=== PATIENT | male | born 1985 | race Caucasian/White ===

== ENCOUNTER 2018-03-22 14:41 | Inpatient (IN) | payer OTHER ==
--- NOTE | 2018-03-22 15:09 | EDPHY ---
H & P Time Seen by Provider: 03/22/18 15:09 HPI/ROS: CHIEF COMPLAINT: Abnormal lab HISTORY OF PRESENT ILLNESS: Patient was given a diagnosis of IgA nephropathy in the past, after he developed hematuria at 18 years old. He had workup extensive including biopsy. The he had his last bout of illness around February 23 when he says he got food poisoning with nausea vomiting and diarrhea but then saw his primary care physician because he has had sort of a sore throat and increased sleepiness and being very tired for several months. Apparently his creatinine was 3.19 and he was referred to the ED for further evaluation. Patient still is able to urinate, he said he had some hematuria in February and the 1st week in March but nothing since. He said he had some swelling in both legs 2 months ago which has since resolved. REVIEW OF SYSTEMS: Eye: no change in vision ENT: HPI Cardiac: no chest pain or syncope Pulmonary: no cough or SOB Abdomen: No abdominal pain, HPI Musculoskeletal: Intermittent back pain worse in the morning Skin: Staph infection on the right nose being treated with Bactroban Neuro: no headache Constitutional: no fever : HPI A comprehensive 10 point review of systems is otherwise negative aside from elements mentioned in the history of present illness. PAST MEDICAL HISTORY: Includes asthma, kidney disease as above Social history: No tobacco or alcohol General Appearance: Alert and conversant, cooperative. Eyes: No scleral icterus. ENT, Mouth: Normal mucous membranes. Normal pharynx, mucous membranes not dry. Respiratory: Normal respiratory effort, breath sounds equal, lungs are clear to auscultation. Cardiovascular: Regular rate and rhythm. Gastrointestinal: Abdomen is soft and non tender. Neurological: Alert, face symmetric, normal motor and sensory in extremities. Skin: Small sore on his right nostril which is not severely swollen or extending to the rest of his face. Musculoskeletal: No peripheral edema. Psychiatric: Not agitated. Emergency Department course/MDM: IV normal saline, repeat chemistry panel, nephrology consultation, admission. 1542: discussed with Mode; treat hypertension aggressively with IV medications, renal ultrasound with doppler. 1601: Results and plan discussed with the patient, nicardipine discussed and consented and ordered. 1646: 159/97, renal US ordered by hospitalist. Smoking Status: Current some day smoker Constitutional: Initial Vital Signs Temperature (C) 36.7 C 03/22/18 14:43 Heart Rate 61 01/17/19 14:43 Respiratory Rate 18 03/22/18 14:43 Blood Pressure 191/113 H 03/22/18 14:43 O2 Sat (%) 93 03/22/18 14:43 O2 Delivery Mode Room Air Allergies/Adverse Reactions: No Known Allergies Allergy (Unverified 03/22/18 14:48) Home Medications: Medication Instructions Recorded Cetirizine [ZyrTEC 10 mg (*)] 10 mg PO DAILY 03/22/18 Esomeprazole Magnesium [Nexium 20 mg PO DAILY 03/22/18 24Hr] Fluticasone/Salmeter 250/50Mcg 1 puffs IH DAILY 03/22/18 [Advair 250/50 (*)] Medical Decision Making - Diagnostics EKG Interpretation: 12-lead EKG interpreted by me; official reading is in computer system. My interpretation is sinus rhythm rate 80 otherwise normal. Consult/Admit Bed Type: [place] [address] Critical Care Time: Critical care time spent by me, Dr. Parham, exclusively with the care of this patient was 30 minutes, exclusive of PA or POOL LIFEGUARD time and exclusive of separate procedures. The organ system at risk was a renal and I ordered multiple diagnostics, specialist consultation, IV blood pressure medication to stabilize the patient and prevent worsening of the patient's condition. - Data Points Laboratory Results: Laboratory Results 03/22/18 15:07 03/22/18 15:07 03/22/18 03/22/18 15:07 15:07 WBC 8.27 10^3/uL 10^3/uL (3.80-9.50) RBC 4.32 10^6/uL L 10^6/uL (4.40-6.38) Hgb 13.4 g/dL L g/dL (13.7-17.5) Hct 39.4 % L % (40.0-51.0) MCV 91.2 fL fL (81.5-99.8) MCH 31.0 pg pg (27.9-34.1) MCHC 34.0 g/dL g/dL (32.4-36.7) RDW 11.8 % % (11.5-15.2) Plt Count 311 10^3/uL 10^3/uL (150-400) MPV 10.1 fL fL (8.7-11.7) Neut % (Auto) 61.2 % % (39.3-74.2) Lymph % (Auto) 25.2 % % (15.0-45.0) [place] % (Auto) 8.9 % % (4.5-13.0) Eos % (Auto) 3.9 % % (0.6-7.6) Baso % (Auto) 0.6 % % (0.3-1.7) Nucleat RBC Rel Count 0.0 % % (0.0-0.2) Absolute Neuts (auto) 5.06 10^3/uL 10^3/uL (1.70-6.50) Absolute Lymphs (auto) 2.08 10^3/uL 10^3/uL (1.00-3.00) Absolute Monos (auto) 0.74 10^3/uL 10^3/uL (0.30-0.80) Absolute Eos (auto) 0.32 10^3/uL 10^3/uL (0.03-0.40) Absolute Basos (auto) 0.05 10^3/uL 10^3/uL (0.02-0.10) Absolute Nucleated RBC 0.00 10^3/uL 10^3/uL (0-0.01) Immature Gran % 0.2 % % (0.0-1.1) Immature Gran # 0.02 10^3/uL 10^3/uL (0.00-0.10) Sodium 136 mEq/L mEq/L (135-145) Potassium 4.5 mEq/L mEq/L (3.5-5.2) Chloride 108 mEq/L mEq/L (97-110) Carbon Dioxide 24 mEq/l mEq/l (22-31) Anion Gap 4 mEq/L L mEq/L (6-14) BUN 38 mg/dL H mg/dL (7-23) Creatinine 3.0 mg/dL H mg/dL (0.7-1.3) Estimated GFR 25 Glucose 98 mg/dL mg/dL (70-100) Calcium 8.3 mg/dL L mg/dL (8.5-10.4) Medications Given: Discontinued Medications Nicardipine/Sodium Chloride (Cardene 0.1 Mg/Ml (Premix)) 200 mls @ 0 mls/hr IV EDNOW ONE; Titrate PRN Reason: Protocol Stop: 03/22/18 15:58 Last Admin: 03/22/18 16:09 Dose: 200 mls Sodium Chloride (Ns) 1,000 mls @ 0 mls/hr IV EDNOW ONE; Wide Open PRN Reason: Protocol Stop: 03/22/18 17:03 Last Admin: 03/22/18 17:26 Dose: 1,000 mls Departure - Departure Disposition: [facility] Inpatient Acute Clinical Impression: Acute renal failure Qualifiers: Acute renal failure type: unspecified Qualified Code(s): N17.9 - Acute kidney failure, unspecified Hypertension Qualifiers: Hypertension type: unspecified Qualified Code(s): I10 - Essential (primary) hypertension Condition: Fair
[2018-03-22 15:22] LABS: PLATELET COUNT 311 10^3/uL (150-400)
[2018-03-22] MEDS ORDERED: niCARdipine/NACL 200 ML IV ONE (15:57)
[2018-03-22] MEDS ORDERED: ONDANSETRON 4 MG/2 ML VIAL IVP PRN (16:23)
[2018-03-22] MEDS ORDERED: ONDANSETRON DISINTEGRATING 4 MG TAB PO PRN (16:23)
[2018-03-22] MEDS ORDERED: ALBUTEROL 60 PUFFS/8 GM MDI IH PRN (16:28)
[2018-03-22] MEDS ORDERED: NS 1,000 ML IV SCH (16:30)
--- NOTE | 2018-03-22 16:48 | PDGENHP ---
History and Physical - Chief Complaint hematuria - History of Present Illness Patient is a 32-year-old male with known history of IgA nephropathy and asthma who presented to the ER after his primary care physician directed him to come here because his creatinine was elevated. He says he was diagnosed with IgA nephropathy at the age of 18. His initial presenting symptom was hematuria that prompted him to see his primary care doc that then referred him to a mill operator head. His diagnosis was confirmed with a renal biopsy. He has not seen a mill operator head in many years. He says that it is very normal for him to get upper respiratory tract infections after which he develops hematuria which usually clears up after a few days. He got sick with multiple upper respiratory infections and February of 2018 and his hematuria was more persistent lasting almost the entire month of February. He saw his primary care physician today who checked labs and said that his creatinine was almost 3 and sent into the emergency room for further evaluation. He says he has been feeling more tired and lethargic lately and is just getting over an upper respiratory tract infection. Otherwise he denied any shortness of breath nausea vomiting, dyspnea on exertion, fevers chills and cough have swelling in his legs or other symptoms. History Information - Allergies/Home Medication List Allergies/Adverse Reactions: No Known Allergies Allergy (Unverified 03/22/18 14:48) Home Medications: Cetirizine [ZyrTEC 10 mg (*)] 10 mg PO DAILY 03/22/18 [Last Taken 03/21/18] Esomeprazole Magnesium [Nexium 24Hr] 20 mg PO DAILY 03/22/18 [Last Taken ] Fluticasone/Salmeter 250/50Mcg [Advair 250/50 (*)] 1 puffs IH DAILY 03/22/18 [ Last Taken 03/21/18] I have personally reviewed and updated: family history, medical history, social history, surgical history - Past Medical History Additional medical history: IgA nephropathy - Social History Smoking Status: Current some day smoker Review of Systems Review of Systems: ROS: 10pt was reviewed & negative except for what was stated in HPI & below Physical Exam Physical Exam: Temp Pulse Resp BP Pulse Ox 36.7 C 79 16 186/122 H 94 03/22/18 14:43 03/22/18 16:36 03/22/18 16:36 03/22/18 16:36 03/22/18 16:36 Constitutional: no apparent distress, appears nourished, not in pain Eyes: PERRL, anicteric sclera, EOMI Ears, Nose, Mouth, Throat: moist mucous membranes, hearing normal, ears appear normal, no oral mucosal ulcers Cardiovascular: regular rate and rhythym, no murmur, rub, or gallop, No edema Respiratory: no respiratory distress, no rales or rhonchi, clear to auscultation Gastrointestinal: normoactive bowel sounds, soft, non-tender abdomen, no palpable masses Genitourinary: no bladder fullness, no bladder tenderness Skin: warm, normal color, no rashes or abrasions, no fluctuance, no induration, No mottled Musculoskeletal: full muscle strength, no muscle tenderness, normal joint ROM, no joint effusions Psychiatric: interacting appropriately, not anxious, not encephalopathic, thought process linear Lymph, Heme, Immunologic: no cervical LAD, no supraclavicular LAD Lab Data & Imaging Review 03/22/18 15:07 03/22/18 15:07 WBC 8.27 10^3/uL (3.80-9.50) 03/22/18 15:07 RBC 4.32 10^6/uL (4.40-6.38) L 03/22/18 15:07 Hgb 13.4 g/dL (13.7-17.5) L 03/22/18 15:07 Hct 39.4 % (40.0-51.0) L 03/22/18 15:07 MCV 91.2 fL (81.5-99.8) 03/22/18 15:07 MCH 31.0 pg (27.9-34.1) 03/22/18 15:07 MCHC 34.0 g/dL (32.4-36.7) 03/22/18 15:07 RDW 11.8 % (11.5-15.2) 03/22/18 15:07 Plt Count 311 10^3/uL (150-400) 03/22/18 15:07 MPV 10.1 fL (8.7-11.7) 03/22/18 15:07 Neut % (Auto) 61.2 % (39.3-74.2) 03/22/18 15:07 Lymph % (Auto) 25.2 % (15.0-45.0) 03/22/18 15:07 [place] % (Auto) 8.9 % (4.5-13.0) 03/22/18 15:07 Eos % (Auto) 3.9 % (0.6-7.6) 03/22/18 15:07 Baso % (Auto) 0.6 % (0.3-1.7) 03/22/18 15:07 Nucleat RBC Rel Count 0.0 % (0.0-0.2) 03/22/18 15:07 Absolute Neuts (auto) 5.06 10^3/uL (1.70-6.50) 03/22/18 15:07 Absolute Lymphs (auto) 2.08 10^3/uL (1.00-3.00) 03/22/18 15:07 Absolute Monos (auto) 0.74 10^3/uL (0.30-0.80) 03/22/18 15:07 Absolute Eos (auto) 0.32 10^3/uL (0.03-0.40) 03/22/18 15:07 Absolute Basos (auto) 0.05 10^3/uL (0.02-0.10) 03/22/18 15:07 Absolute Nucleated RBC 0.00 10^3/uL (0-0.01) 03/22/18 15:07 Immature Gran % 0.2 % (0.0-1.1) 03/22/18 15:07 Immature Gran # 0.02 10^3/uL (0.00-0.10) 03/22/18 15:07 Sodium 136 mEq/L (135-145) 03/22/18 15:07 Potassium 4.5 mEq/L (3.5-5.2) 03/22/18 15:07 Chloride 108 mEq/L (97-110) 03/22/18 15:07 Carbon Dioxide 24 mEq/l (22-31) 03/22/18 15:07 Anion Gap 4 mEq/L (6-14) L 03/22/18 15:07 BUN 38 mg/dL (7-23) H 03/22/18 15:07 Creatinine 3.0 mg/dL (0.7-1.3) H 03/22/18 15:07 Estimated GFR 25 03/22/18 15:07 Glucose 98 mg/dL (70-100) 03/22/18 15:07 Calcium 8.3 mg/dL (8.5-10.4) L 03/22/18 15:07 Assessment & Plan Assessment: Acute renal failure (Acute)- patient with known history of IgA nephropathy. I discussed the case with the emergency room physician and review reviewed his labs showing elevated creatinine. Nephrology has been consulted. -urine protein and creatinine ordered -renal ultrasound -hydration -nephrology to see Hypertension (Acute)- patient has no known history of hypertension. EKG obtained which shows no ischemic changes. Blood pressure was 193/113 in the emergency room. ER physician and started IV calcium channel yoel drip. -continue nicardipine drip -if able I would titrate this off and give p.r.n. Hydralazine for blood pressure control -Nephrology to see Normocytic anemia- likely anemia of renal disease. Monitor as there is no evidence of active bleed. Prophylaxis- SCDs Fluids- intravenous saline Electrolytes- within normal limits Nutrition- regular diet Cor-full code Dispo- observation for acute kidney injury and hypertensive urgency
[2018-03-22] MEDS ORDERED: NS 1,000 ML IV ONE (17:02)
--- NOTE | 2018-03-22 17:42 | GCON ---
DATE OF CONSULTATION: 03/22/2018 REASON FOR CONSULTATION: Opinion regarding kidney disease. HISTORY OF PRESENT ILLNESS: The patient is a very pleasant 32-year-old gentleman with known IgA neph ropathy diagnosed by kidney biopsy at the age of 18. He has not been on specific therapies. He was diagnosed in [place], [place]. He moved out to the [facility] about 3-1/2 years ago, moved out to the [facility] and up into the [facility] about 6 or 7 months ago. Joseph says that he was feel ing well until about January, he had increasing fatigue with gross hematuria for about 3 weeks, that resolved spontaneously. He was not feeling well around [place] and got some food poisoning. Agai n, he started to have some gross hematuria and it stopped approximately 1 week ago. He now has an ul cer on his right nares and has had that for about 4 days. He has been fatigued and having difficulty sleeping. There is no chest pain or shortness of breath. No cough or sputum production. No hemopt ysis, hematemesis, epistaxis, abdominal pain. He had some diarrhea over . No melena, hemat ochezia, blurry vision, double vision, headache, orthopnea, paroxysmal nocturnal dyspnea, palpitation s, syncope, or diminished urine output. He does have intermittent gross hematuria. PAST MEDICAL HISTORY: Significant for: 1. IgA nephropathy. 2. Asthma. 3. History of appendectomy. ALLERGIES: Environmental in nature. No medical allergies. FAMILY HISTORY: Negative for renal disease. 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 He smokes an occasional cigarette, a bout 1 pack per year and takes marijuana 2-3 times weekly, either by marijuana cigarette or edibles. He drinks about a beer a day, but that is down from 2 beers a day approximately a year ago. MEDICATIONS: He is not prescribed any medications but does take [id number] Nexium and does dio e some occasional Advair for his asthma. Does not use any nonsteroidal anti-inflammatory drugs. PHYSICAL EXAMINATION: VITAL SIGNS: Initial blood pressure in emergency department today were 190/12 5. On a Cardene infusion, his blood pressures are now in the 160/100 range. Pulse of 88, respiration s 16, temperature 36.7. Urine output not yet measured. He weighs 88.5 kg. GENERAL: He is alert, post adoption coordinator perative and is in no acute distress, although he does seem a bit concerned about his situation. JENNIFER NT: Pupils are reactive to light. Extraocular movements are intact. Mucous membranes are moist. Daily magdaleno does have an ulceration on his right nares. NECK: No lymphadenopathy, thyromegaly, JVD or bruit. HEART: Regular. No rub. No S3. He appears to have an S4. No murmur. LUNGS: No rales, rhonchi, or wheezes. ABDOMEN: Bowel sounds are positive. Soft, nontender, nondistended. EXTREMITIES: No cyanos is, clubbing, or edema. NEUROLOGIC: No asterixis. SKIN: No unusual rashes or lesions except for as de scribed above. LYMPH: No palpable lymphadenopathy or lymphedema. MUSCULOSKELETAL: No effusions or te nderness. LABORATORY: Serum sodium 136, potassium 4.5, chloride 108, CO2 24, BUN 38, creatinine 3, glucose 98, calcium 8.3, WBC 8.27, hemoglobin 13.4, hematocrit 39.4, platelet count 311,000. IMPRESSION: 1. Acute kidney injury, patient says his baseline serum creatinine about 3-1/2 years ago when he madyson ed in [place], was about 1. Question if this is an acute kidney injury or is this progressive kidne y failure from his IgA nephropathy. 2. IgA nephropathy by percutaneous kidney biopsy at the age of 18, he has not been on any particular therapy subsequently. 3. Hypertensive urgency, the patient will be admitted to the intensive care unit for close monitorin g. 4. Mild anemia, hemoglobin is 13.4. 5. History of asthma. 6. Environmental allergies. RECOMMENDATIONS: 1. Admit to the intensive care unit for close observation of his blood pressures, he may well need t o be on a Cardene drip for a while. 2. Discussed the progressive nature of IgA nephropathy as well as chronic kidney disease, etc. It i s our hope that with blood pressure control and getting him on appropriate therapy for his IgA nephro jayne, we will see improvement in his renal function. 3. He is mildly anemic. We will work that up. 4. We will be checking a renal ultrasound with Dopplers. 5. We will check an echocardiogram. 6. Check a PT, PTT, hepatitis serologies, etc. 7. There is no urgent dialysis needs at this point. Thank you for allowing me to participate in the care of your patient. If there are any questions, ple ase do not hesitate to contact us. We will be following along with you. /[id number]/MODL
--- NOTE | 2018-03-22 17:52 | CPEKG ---
Test Reason : OPEN Blood Pressure : / mmHG Vent. Rate : 080 BPM Atrial Rate : 083 BPM P-R Int : 154 ms QRS Dur : 094 ms QT Int : 402 ms P-R-T Axes : 039 077 019 degrees QTc Int : 464 ms Sinus rhythm Confirmed by Pasha Parham ([id number]) on 03/22/2018 5:51:42 PM Referred By: Confirmed By:Pasha Parham
[2018-03-22] MEDS ORDERED: niCARdipine/NACL/200 ML BAG IV ONE (18:28)
[2018-03-22 18:37] LABS: INR 0.98 (0.83-1.16); PROTIME(PATIENT) 13.2 SEC (12.0-15.0)
[2018-03-22] MEDS: niCARdipine/NACL 200 ML IV SCH ×3 (18:39→23:28)
[2018-03-22 18:41] LABS: CREATINE KINASE 55 IU/L (0-224)
[2018-03-22] MEDS: ACETAMINOPHEN 325 MG TAB PO PRN (20:10)
[2018-03-22 22:18] LABS: HEPATITIS B SURFACE ANTIGEN NEGATIVE (NEGATIVE)
[2018-03-22 22:27] LABS: HEPATITIS C ANTIBODY TOTAL NEGATIVE (NEGATIVE)
[2018-03-23] MEDS: ACETAMINOPHEN 325 MG TAB PO PRN (01:27)
[2018-03-23 06:37] LABS: PLATELET COUNT 243 10^3/uL (150-400)
[2018-03-23] MEDS ORDERED: FLUTICASONE/SALMETER 250/50MCG DISKUS IH SCH (09:00)
[2018-03-23] MEDS: PANTOPRAZOLE SODIUM 40 MG TAB PO SCH (09:15)
[2018-03-23] MEDS: FLUTICASONE/SALMETER 500/50MCG DISKUS IH SCH (09:34)
--- NOTE | 2018-03-23 09:43 | ECHO ---
[email or web address] [address] [address] Main: [phone] Fax: Transthoracic Echocardiogram Name: JOSEPH VAUGHAN MR#: [id number] Study Date: 03/22/2018 Study Time: 06:37 PM Date of : 1985 Age: 32 year(s) Height: 175.3 cm (69 in.) Weight: 88.45 kg (195 lb.) BSA: 2.04 m2 Gender: Male Examination: Echo Indication: Renal failure, HTN crisis, CHF Image Quality: Contrast: Requested by: Joseph Coello BP: 167 mmHg/87 mmHg Heart Rate: Rhythm: Tachycardia Indication: Renal failure, HTN crisis, CHF Procedure Staff Relay Telegrapher: Miles Haque RDCS Reading Physician: Carlos Nichols MD Requesting Provider: Conclusions: Normal size left ventricle. No LV hypertrophy. Global hypercontractility of the left ventricle. EF is 80 %. No regional wall motion abnormality. Grade 1 diastolic dysfunction (abnormal relaxation). Elevated left ventricular filling pressures.. Normal RV function. The left atrium is normal in size. The right atrium is normal in size. Chiari's network discernible in right atrium. The IVC is normal sized. Measurements: Chambers Valvular Assessment AV/MV Valvular Assessment TV/PV Normal Normal Normal Name Value Range Name Value Range Name Value Range Ao Maria Dolores (MM): 3.3 cm (2.2 cm-3.7 AV Vmax: 1.70 m/s (1 m/s-1.7 PV Vmax: 1.34 m/s (0.6 m/s-0.9 cm) m/s) m/s) IVSd (2D): 0.9 cm (0.6 cm-1.1 AV maxP mmHg ( - ) PV PGmax: 7 mmHg ( - ) cm) LVOT Vmax: 1.53 m/s (0.7 m/s-1.1 LVDd (2D): 5.0 cm (4.2 cm-5.9 m/s) cm) MV E Vmax: 0.99 m/s ( - ) LVDs (2D): 2.6 cm (2.1 cm-4 MV A Vmax: 1.23 m/s ( - ) cm) MV E/A: 0.80 ( - ) LVPWd (2D): 1.0 cm (0.6 cm-1 cm) LVEF (2D): 80 (>=54 %) Continued Measurements: Chambers Valvular Assessment AV/MV Patient: JOSEPH VAUGHAN Study Date: 03/22/2018 Page 1 of 2 06:37 PM Name Value Name Value LADs Lon.8 cm MV E' Septal: 0.07 m/s LA Area: 15.1 cm2 MV E/E' Septal: 14.50 LA Volume: 44 ml MV E/E' Lateral: 14.50 LA Volume Index: 21.6 ml/m2 Findings: Left Ventricle: Normal size left ventricle. No LV hypertrophy. Global hypercontractility of the left ventricle. EF is 80 %. No regional wall motion abnormality. Grade 1 diastolic dysfunction (abnormal relaxation). Elevated left ventricular filling pressures.. Right Ventricle: Normal size right ventricle. Normal RV function. Left Atrium: The left atrium is normal in size. Right Atrium: The right atrium is normal in size. Chiari's network discernible in right atrium. Mitral Valve: The mitral valve is normal in appearance and function. There is no significant mitral valve regurgitation. Aortic Valve: The aortic valve is normal in appearance and function. There is no aortic valve regurgitation. Tricuspid Valve: The tricuspid valve appears normal. There is no tricuspid valve regurgitation. Pulmonic Valve: The pulmonic valve is normal in appearance and function. Aorta: The aorta is normal. IVC: The IVC is normal sized. Pericardium: No pericardial effusion. (No Signature Object) Patient: JOSEPH VAUGHAN Study Date: 03/22/2018 Page 2 of 2 06:37 PM [id number]
--- NOTE | 2018-03-23 11:33 | SOAPPROG ---
SOAP Progress Note Assessment/Plan: Assessment/Plan: SONNY on CKD 1: baseline Cr reportedly 1.0 from a few years back, no recent baseline, has h/o IgA nephropathy. Cr up to 3.0 on presentation, now down to 2.6. - No need for HD. - Will continue to monitor. - Will plan on outpatient nephrology clinic f/u. - Ideally want to start on RAAS blockade, but will hold off for now. HTN: better today, off nicardipine ggt and BP ok this am. - D/C nicardipine ggt. - Would hold off on RAAS blockade until SONNY has improved further. - Will order prn hydralazine for now. - Will order nifedipine to be given tonight only if SBP >145. Subjective: No acute events overnight. Pt states he had some nausea early this am but none now, feeling fine. He has been off nicardipine ggt since last night, SBP 120s- 140s this am. Objective: Vital Signs Temp Pulse Resp BP Pulse Ox 36.8 C 58 L 9 L 120/100 H 94 03/23/18 08:00 03/23/18 08:00 03/23/18 08:00 03/23/18 08:00 03/23/18 08:00 Laboratory Results 03/23/18 05:40 03/23/18 05:40 03/22/18 03/23/18 03/24/18 05:59 05:59 05:59 Intake Total 3391 Output Total 2500 Balance 891 PT 13.2 SEC (12.0-15.0) 03/22/18 15:07 INR 0.98 (0.83-1.16) 03/22/18 15:07 General: alert and oriented, no acute distress Eyes: EOMI, PERRL OP: Clear CV: RRR REsp: Nonlabored respirations on RA Abd: soft, NT/ND Ext: no edema BLE Neuro: CN II-XII grossly intact Psych: cooperative ICD10 Worksheet Patient Problems: Problems Problem Status Onset Acute renal failure Acute Hypertension Acute
[2018-03-23] MEDS ORDERED: NIFEdipine ER 30 MG TAB PO SCH (11:45)
--- NOTE | 2018-03-23 12:42 | HOSPPROG ---
Hospitalist Progress Note Assessment/Plan: 32yo M with IgA nephropathy presents with fatigue found to have severely elevated BP and elevated creatinine. 1. SONNY: Unknown baseline recently, query component of CKD. Improving. - Nephrology following - Renal US without hydro - Avoid nephrotoxins 2. IgA nephropathy: Diagnosed at age 18 - Would benefit from ACEi, holding until Cr improves 3. Severe hypertension: Manifestation of above. BP much better, off cardene gtt. - Hydral PRN until can institute ACEi 4. Diastolic dysfunction: Euvolemic. Noted on echo. 5. Anemia: Mild. Fe replete. Suspect d/t renal disease. 6. Secondary hyperparathyroidism: Phos binders per renal. 7. Nasal ulcer: Bacitracin ointment. Less likely vasculitic in nature. VTE ppx: SCDs Code: full Diet: regular Dispo: Switch to inpatient, transfer to floor Subjective: No complaints. Resting comfortably in bed Objective: Vital Signs Temp Pulse Resp BP Pulse Ox 36.8 C 58 L 9 L 120/100 H 94 03/23/18 08:00 03/23/18 08:00 03/23/18 08:00 03/23/18 08:00 03/23/18 08:00 Laboratory Results 03/23/18 05:40 03/23/18 05:40 03/22/18 03/23/18 03/24/18 05:59 05:59 05:59 Intake Total 3391 Output Total 2500 Balance 891 PT 13.2 SEC (12.0-15.0) 03/22/18 15:07 INR 0.98 (0.83-1.16) 03/22/18 15:07 - Physical Exam Constitutional: no apparent distress, appears nourished, not in pain Eyes: PERRL, anicteric sclera, EOMI Ears, Nose, Mouth, Throat: moist mucous membranes, hearing normal, ears appear normal, no oral mucosal ulcers Cardiovascular: regular rate and rhythym, no murmur, rub, or gallop, No edema Respiratory: no respiratory distress, no rales or rhonchi, clear to auscultation Gastrointestinal: normoactive bowel sounds, soft, non-tender abdomen, no palpable masses Genitourinary: no bladder fullness, no bladder tenderness, no renal bruits Skin: no rashes or abrasions, no fluctuance, no induration Musculoskeletal: full muscle strength, no muscle tenderness, normal joint ROM Neurologic: AAOx3, sensation intact bilaterally Psychiatric: interacting appropriately, not anxious, not encephalopathic, thought process linear ICD10 Worksheet Patient Problems: Problems Problem Status Onset Acute renal failure Acute Hypertension Acute
--- NOTE | 2018-03-23 13:05 | ASMTCASEMG ---
Living Arrangements What is your living Answers: Alone arrangement? Who do you live with? Type Of Residence What kind of residence do Answers: House you live in? Discharge Plan Comments Coordination Status Comments Notes: Patient is a 32yo single male with a known hx of IgA nephropathy, who has been admitted for acute renal failure, hypertension and normocytic anemia. No therapies have been ordered. D/C plan TBD. CM will follow. Date Signed: 03/23/2018 01:04 PM Electronically Signed By:Aliya Crabtree LCSW
--- NOTE | 2018-03-23 15:24 | PDMN ---
Medical Necessity Medical necessity: Change to inpt as of 03/23/18 @ 12:57 per MD order and [facility] [place] M- 326, Renal Failure, Acute. 32 y/o w/IgA nephropathy presented w/fatigue and severely elevated BP, and elevated creatinine 3.0, admitted w/SONNY, IgA nephropathy, nephrology following, diastolic dysfunction, euvolemic, anemia, sec hyperparathyroidism. Upgraded to inpt for further monitoring/management of above.
[2018-03-23] MEDS: NIFEdipine ER 30 MG TAB PO SCH (17:05)
--- NOTE | 2018-03-23 18:19 | GCON ---
CRITICAL CARE CONSULT. DATE OF CONSULTATION: 03/23/2018 HISTORY OF PRESENT ILLNESS: This patient is a 32-year-old male with known history of IgA nephropathy , who has not seen a doctor in several years. He says he gets a few upper respiratory tract infectio ns about once a year, which are associated with hematuria as he has had in the past. They usually re solve on their own. He has been living in [place] for the last 3 years. This occurred in February 2018 as well, but his hematuria did not seem to resolve and he had ongoing fatigue, went to his prima care physician who measured labs and found his creatinine be up to 3. In addition, on arrival in the emergency department, he had a blood pressure of 193/113, was started on a Cardene drip, moved to the ICU. He developed some flushing and discomfort with the nicardipine drip. This was stopped at about 4 a.m. and his blood pressure remained relatively stable since that time. He has had a good ur ine output as well. REVIEW OF SYSTEMS: Otherwise negative. He says he feels reasonably well today and the other symptom s have otherwise resolved. PAST MEDICAL HISTORY: 1. IgA nephropathy. 2. Asthma. 3. GERD. PAST SURGICAL HISTORY: None. SOCIAL HISTORY: He is a nonsmoker. FAMILY HISTORY: Noncontributory at this time. MEDICATIONS: Include Tylenol, albuterol, hydralazine p.r.n., Zofran, Protonix, Advair. PHYSICAL EXAM: VITAL SIGNS: At the time of my evaluations, blood pressure was 120/100, heart rate 5 8, respiratory rate 9, oxygen saturation 94% on room air. GENERAL: He is very pleasant man in no donnie arent distress. Able to speak in full sentences without using accessory muscles for breathing. HEEN T: Pupils equally round and reactive to light. Nonicteric and noninjected. Mucous membranes moist w ithout erythema or exudate. NECK: Supple without adenopathy or jugular vein distention. LUNGS: Casie ath sounds were clear to auscultation bilaterally without wheezes, rubs or rales. HEART: Regular ra te and rhythm without murmurs, rubs, or gallops. ABDOMEN: Soft, nontender, nondistended without hep atosplenomegaly. EXTREMITIES: No clubbing, cyanosis, or edema. 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 SKIN: Warm, dry, without evidence of rash. OBJECTIVE DATA: Includes white count 10.4, hematocrit 34.8, platelets of 243. Sodium is 136, potass ium 4.7, chloride 109, bicarb 34, BUN 32, creatinine 2.6 which is down from 3.0 yesterday. Uric acid was 8.9, calcium 7.9, phos 5.3. LFTs were normal. Total protein 5.3, albumin 2.5, TSH 3.6. Urinal ysis showed 2+ protein, 50-180 red cells. Urine creatinine 26, urine protein 276, and hepatitis A, B and C all negative. ASSESSMENT AND PLAN: 1. Hypertensive urgency, probably related to his underlying renal disease. He responded from a bloo d pressure perspective to his nicardipine, but did not tolerate the drug very well. He probably will end up with an INGRID inhibitor at some point. I will defer that to Renal who preferred to give him ni fedipine at this time. He is off the drip. Will probably go to the floor. 2. Acute kidney injury, probably related to his IgA nephropathy. No dialysis is indicated. He did respond well to the IV fluids and making excellent urine at this time. /[id number]/MODL
[2018-03-23] MEDS: hydrALAZINE 20 MG/ML VIAL IVP PRN (21:46)
[2018-03-23] MEDS: MUPIROCIN 2% 22 GM OINT TP SCH (21:47)
[2018-03-24] MEDS: PANTOPRAZOLE SODIUM 40 MG TAB PO SCH (09:01)
[2018-03-24] MEDS: NIFEdipine ER 30 MG TAB PO SCH (09:01)
[2018-03-24] MEDS: MUPIROCIN 2% 22 GM OINT TP SCH (09:02)
[2018-03-24] MEDS: FLUTICASONE/SALMETER 500/50MCG DISKUS IH SCH (09:45)
[2018-03-24] MEDS: hydrALAZINE 20 MG/ML VIAL IVP PRN (09:48)
[2018-03-24 12:17] VITALS: BP 171/96
--- NOTE | 2018-03-24 13:37 | PDDCSUM ---
Discharge Summary Discharge Summary: Date of Admission: 03/22/2018 Date of Discharge: 03/24/2018 Consultants: nephrology, ammonia technician Studies: TTE, renal US Discharge Diagnoses: 1. SONNY 2. Hypertensive urgency 3. IgA nephropathy 4. Diastolic dysfunction 5. Anemia of renal disease 6. Secondary hyperparathyroidism 7. Nasal erythema Brief Hospital Course: 32yo M with IgA nephropathy presented with fatigue and intermittent gross hematuria who was found to have severely elevated BP and elevated creatinine. He was diagnosed with IgA nephropathy at age 18 via a kidney biopsy. Moved to [place] about 3.5 years ago and hasn't not seen a medical provider since that time. His last known creatinine was around 1.0. He reports having several months of intermittent gross hematuria. Recent fatigue had become very severe so he came to the ED where creatinine was found to be 3.0 with a SBP of 200. His BP was controlled with a nicardipine gtt. Nephrology was consulted and started him on PO nifedipine. His BP improved and his nifedipine was uptitrated prior to discharge. His creatinine was improving down to 2.4. I had a lengthy conversation with the patient regarding the serious nature of his kidney disease and the potential need for dialysis or kidney transplant in the near future if he continues to not follow up. Medications: Please refer to EMR for complete list. I sent a prescription for nifedipine ER 60mg daily to his pharmacy. Follow Up Plan: 1. Repeat BMP within 1 week to monitor renal function 2. Keep BP log 3. Establish with nephrology 4. Plan to initiate INGRID inhibitor/ARB once kidney function stabilizes Physical Exam: Vitals reviewed. Alert and oriented, RRR without m/r/g, lungs clear, abdomen soft and nt, no edema, no rashes.
--- NOTE | 2018-03-24 14:16 | ASMTLACE ---
LACE Length of stay for Answers: 1 day current admission Acuity / Level of Answers: Yes Care: Did the patient have an inpatient admission? Comorbidities - select Answers: Moderate or severe liver all that apply or renal disease # of Emergency department Answers: 1-2 visits in the last 6 months Score: 9 Date Signed: 03/24/2018 02:15 PM Electronically Signed By:Ana Irving RN
--- NOTE | 2018-03-24 14:19 | ASDISCHSUM ---
Discharge Information Plan Status:Home with No Needs Medically Cleared to Leave:03/23/2018 Discharge Date:03/24/2018 01:59 PM CM D/C Disposition:Home, Routine, Self-Care ADT D/C Disposition:Home, Routine, Self-Care Projected Discharge Date:03/24/2018 01:59 PM Transportation at D/C: Discharge Delay Reason: Follow-Up Date:03/24/2018 01:59 PM Discharge Slot: Final Diagnosis: Placement Information Patient Contact Information Contact Name:APPLE Relationship:Father Address:[place] OF STATE Work Phone: City: [facility] Phone: [facility] Code: Email: Financial Information Financial Class:HMO and PPO Plans Primary Plan Desc:DEEPTHI PPO POS HMO SIG ADM Primary Plan Number:[id number] Secondary Plan Desc: Secondary Plan Number: Assessment Information LACE LACE Length of stay for Answers: 1 day current admission Acuity / Level of Answers: Yes Care: Did the patient have an inpatient admission? Comorbidities - select Answers: Moderate or severe liver all that apply or renal disease # of Emergency department Answers: 1-2 visits in the last 6 months Score: 9 Date Signed: 03/24/2018 02:15 PM Electronically Signed By:Ana Irving RN [facility] Initial CM Assessment Living Arrangements What is your living Answers: Alone arrangement? Who do you live with? Type Of Residence What kind of residence do Answers: House you live in? Discharge Plan Comments Coordination Status Comments Notes: Patient is a 32yo single male with a known hx of IgA nephropathy, who has been admitted for acute renal failure, hypertension and normocytic anemia. No therapies have been ordered. D/C plan TBD. CM will follow. Date Signed: 03/23/2018 01:04 PM Electronically Signed By:Aliya Crabtree LCSW Case Management Discharge Plan Note Case Management Discharge Discharge Order Complete? Answers: Yes Patient to Obtain Answers: Independently Medications Discharge Comments Notes: 03/24/2018 Case Management Note There are no therapy evals ordered. Discussed with . Pt safe to d/c home independent with follow up as directed. No further case management d/c needs identified. Date Signed: 03/24/2018 02:18 PM Electronically Signed By:Ana Irving RN Intervention Information
== END 2018-03-24 13:59 | disposition home or self-care (01) | DRG 684 ==
LOC: F2N 17:33 → F3E 03-23 13:50
PROVIDERS: ADMIT Internal Medicine; ATTEND Internal Medicine
DX: N17.8 Other acute kidney failure (principal); I16.0 Hypertensive urgency; N02.8 Recurrent and persistent hematuria with other morphologic changes; D64.89 Other specified anemias; N25.81 Secondary hyperparathyroidism of renal origin; J45.909 Unspecified asthma, uncomplicated; J34.0 Abscess, furuncle and carbuncle of nose
CPT/HCPCS: 83010-90; 96365; 96366; G0378; G0472; J0360; J2405

== ENCOUNTER 2018-05-14 12:37 | Inpatient (IN) | payer OTHER ==
[2018-05-14 13:50] LABS: PLATELET COUNT 295 10^3/uL (150-400)
--- NOTE | 2018-05-14 14:15 | EDPHY ---
H & P Stated Complaint: c/o nausea since this am, intermittent morley/malaise x 3 days after new med Time Seen by Provider: 05/14/18 12:58 HPI/ROS: CHIEF COMPLAINT: High blood pressure HISTORY OF PRESENT ILLNESS: This is a 33 year old male with h/o IgA nephropathy (diagnosed 15 years ago) and resultant hypertension and renal failure. He was hospitalized in March 2018 with hypertensive crisis and renal failure. His blood pressure has been difficult to control. Two months ago he began nifedipine and four days ago he was started on hydralazine. Since beginning this medication he has been feeling lightheaded, fatigued, and has had a headache. He spent the past two days in bed. His headache is global, with nausea but no vomiting and photophobia/phonophobia. He has no history of migraines, but reports intermittent headaches over the past few months. BP at home has been running 160-170/110-120. He denies fever, stiff neck, numbness, weakness, confusion, speech difficulty. REVIEW OF SYSTEMS: A ten system review of systems was performed and is negative with the exception of the items mentioned in the HPI and increasing stress at work. Past medical history: 1. IgA nephropathy 2. Hypertension 3. Renal failure 4. 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 He does not use tobacco products. He rarely drinks alcohol and has been gradually decreasing his alcohol consumption (used to drink 3 beers daily). General Appearance: Alert. Vital signs reviewed. BP 148/99 at triage. Eyes: Pupils equal and round, no conjunctival injection, no discharge. Anicteric. ENT, Mouth: Mucous membranes are moist, no oropharyngeal erythema or edema. Neck: No lymphadenopathy, supple. Respiratory: Lungs are clear to auscultation; no wheezes, rales, or rhonchi. Cardiovascular: Regular rate and rhythm; no murmur, rub, or gallop. Gastrointestinal: Abdomen is soft and nontender, no masses or organomegaly, bowel sounds normal. Skin: Warm and dry, no rashes on exposed skin, normal color. Back: Nontender to palpation over the thoracolumbar spine. Mild left CVA tenderness. Extremities: No lower extremity edema, no calf tenderness or swelling. Neurological: Alert and oriented. Moving all four extremities easily and equally. Cranial nerves II through XII are examined and are intact (visual acuity not tested). Strength is 5 over 5 bilaterally with testing of all major motor groups. Sensation is intact to light touch over all 4 extremities. Deep tendon reflexes are 2+ in the biceps and knees bilaterally. Gait is normal. Psychiatric: Normal affect. - Medical/Surgical History Hx Asthma: No Hx Chronic Respiratory Disease: No Hx Diabetes: No Hx Cardiac Disease: Yes Hx Renal Disease: Yes Hx Cirrhosis: No Hx Alcoholism: No Other PMH: kidney disease, asthma, hypertension, gerd, kidney biopsy, appendectomy, surg L foot - Social History Smoking Status: Current some day smoker Constitutional: Initial Vital Signs Temperature (C) 36.4 C 05/14/18 12:41 Heart Rate 86 05/14/18 12:41 Respiratory Rate 18 05/14/18 12:41 Blood Pressure 148/99 H 05/14/18 12:41 O2 Sat (%) 97 05/14/18 12:41 O2 Delivery Mode Room Air Allergies/Adverse Reactions: No Known Allergies Allergy (Verified 05/14/18 12:46) Home Medications: Medication Instructions Recorded Cetirizine [ZyrTEC 10 mg (*)] 10 mg PO DAILY PRN 03/22/18 Esomeprazole Magnesium [Nexium 20 mg PO DAILY PRN 03/22/18 24Hr] Acetaminophen [Tylenol 325mg (*)] 325 mg PO Q6 PRN 05/14/18 Albuterol [Proventil Inhaler HFA 1 - 2 puffs IH Q4H PRN 05/14/18 (*)] Fluticasone/Salmeter 250/50Mcg 1 puffs IH DAILY 05/14/18 [Advair 250/50 (*)] [place]-3 Fatty Acids [Fish Oil 1000 1,000 mg PO DAILY 05/14/18 mg (*)] Carvedilol [Coreg (*)] 3.125 mg PO BIDMEAL #60 tab 05/17/18 NIFEdipine ER [Adalat CC 60 mg (*)] 60 mg PO BID #60 tab 05/17/18 Medical Decision Making ED Course/Re-evaluation: 33 year old male with igA nephropathy and hypertension/renal failure. Recently started on hydralazine, which I think accounts for his presyncope. I spoke with his plater printed circuit board panels, , on the phone. She advises discontinuing hydralazine and admission for evaluation and treatment of htn and headache. His headache has migrainous features but could certainly be due to his medication also. He has a normal neurologic exam, I doubt ICH. I find nothing in the history or physical or evaluation that suggest infection. Creatinine today down slightly from last week (3.4 to 3.1). He is being admitted to the hospitalist service. Differential Diagnosis: I considered a differential diagnosis of hypertension that includes but is not limited to stress, kidney disease, tobacco abuse, use of stimulants, obesity, sleep apnea, excess sodium/poor diet, and sedentary lifestyle. - Data Points Laboratory Results: Laboratory Results 05/15/18 04:35 05/15/18 04:35 Medications Given: Discontinued Medications Acetaminophen (Tylenol) 325 mg PO Q6 PRN PRN Reason: Pain, Mild Stop: 11/10/18 15:28 Last Admin: 05/16/18 21:01 Dose: 325 mg Carvedilol (Coreg) 3.125 mg PO BIDMEAL [facility] Stop: 11/11/18 09:29 Last Admin: 05/17/18 09:20 Dose: 3.125 mg Sodium Chloride (Ns) 1,000 mls @ 75 mls/hr IV CONT [facility] Stop: 05/16/18 05:04 Last Admin: 05/14/18 16:35 Dose: 1,000 mls Influenza Virus Vaccine Quadrival (Flulaval Quad [id number] (6mo+)) 0.5 ml IM .ONCE ONE Stop: 05/15/18 12:55 Last Admin: 05/15/18 13:13 Dose: 0.5 ml Labetalol HCl (Trandate Injection) 10 mg IVP Q6H PRN PRN Reason: SBP Greater Than 160 Stop: 11/10/18 18:32 Last Admin: 05/14/18 19:38 Dose: 10 mg Nifedipine (Adalat Cc) 30 mg PO DAILY [facility] Stop: 11/11/18 08:59 Last Admin: 05/15/18 09:42 Dose: Not Given Nifedipine (Adalat Cc) 60 mg PO DAILY [facility] Stop: 11/11/18 08:59 Last Admin: 05/15/18 09:41 Dose: Not Given Nifedipine (Adalat Cc) 60 mg PO BID [facility] Stop: 11/11/18 09:44 Last Admin: 05/17/18 09:20 Dose: 60 mg Pneumococcal Polyvalent Vaccine (Pneumovax 23) 0.5 ml IM .ONCE ONE Stop: 05/15/18 12:55 Last Admin: 05/15/18 13:11 Dose: 0.5 ml Fluticasone/Salmeterol (Advair) 1 puffs IH DAILY [facility] Stop: 11/11/18 08:59 Last Admin: 05/17/18 08:59 Dose: 1 puffs Departure - Departure Disposition: [facility] Acute Clinical Impression: Hypertension, Renal failure Condition: Good
[2018-05-14] MEDS ORDERED: CETIRIZINE 10 MG TAB PO PRN (15:29)
[2018-05-14] MEDS ORDERED: ALBUTEROL 60 PUFFS/8 GM MDI IH PRN (15:29)
[2018-05-14] MEDS ORDERED: ONDANSETRON 4 MG/2 ML VIAL IVP PRN (15:31)
[2018-05-14] MEDS ORDERED: ONDANSETRON DISINTEGRATING 4 MG TAB PO PRN (15:31)
[2018-05-14] MEDS ORDERED: NS 1,000 ML IV SCH (15:45)
[2018-05-14] MEDS ORDERED: hydrALAZINE 25 MG TAB PO SCH (16:00)
[2018-05-14] MEDS: ACETAMINOPHEN 325 MG TAB PO PRN (16:34)
[2018-05-14] MEDS ORDERED: LABETALOL HCL 100 MG TAB PO PRN (17:50)
--- NOTE | 2018-05-14 17:50 | SOAPPROG ---
SOAP Progress Note Assessment/Plan: Assessment: #SONNY on CKD -biopsy IgA nephropathy at age 18 (treated prednisone/lisinopril then), last known Cr was 1.2 about 2.5 years ago per pt prior to move here. Told BP was "good" and has not been on any meds for HTN until Mar of this year when presented with BP 200s. -recent Cr 3.2 on 05/03 with 4g proteinuria on UPC--- Cr was as low as 2.4 in Mar at discharge for admission for HTN urgency -I suspect this is chronic progression of his IgA with HTN but we discussed role for renal biopsy in helping prognosticate (?any activity worth treating with prednisone). May also have HTN Effect both from unclear duration of untreated HTN and recent start of meds/hemodynamic. I explained we may see extensive fibrosis and thus nothing to treat with immunosuppression but that would be helpful knowledge for him to have especially given how young he is and potential need for dialysis/transplant in near future. He agrees and wants to proceed. Reviewed procedure in detail including risk of bleeding-- needs to be NPO P MN, hold any anticoag (I verified no ASA/NSAIDS in past few weeks), and have BP a bit better controlled. Reviewed procedure in detail. -ultimately want him on vanda inhib but explained we want to ensure Cr stable first -agree with gentle IVF now given poor po intake recently #HTN -continue nifedipine, hold hydralazine -I suspect some of symptoms are due to lowering of his BP (he reports BP was 200s when first admitted in Mar) and medication side effects. I explained our goal is to get him to <130/80 but may have to go a bit slower. Ideally prefer him on vanda inhib if sure Cr stable-- can consider starting in am. For overnight , will use prn IV labetalol I discussed with hospitalist and RN pager [phone] [facility] 05/14/18 18:31 Subjective: 33 M with IgA Nephropathy (biopsied age 18 and treated with prednisone/ lisinopril then), HTN referred to hospital after calling our clinic today for general malaise. Notes symptoms for past few weeks, worse after starting new HTN med hydralazine on Monday. Recent admit to [facility] in Mar for HTN urgency, SONNY. Cr 3.0-> 2.4 at time of discharge. Follows Dr. Wheeler of our group and labs with her on 05/03 showed Cr 3.2 and 4g proteinuria. Has been on nifedipine since this hospitalization in Mar with recent start of hydralazine on Monday. He notes he last saw mask inspector about 2.5 years ago when moved here from [place]--- told Cr was 1.2 and that BP was good then, not on meds. Did not see physician until Mar when had nose bleed and BP was in 200s at time. Reports has felt tired and HAs since February on looking back. Chronically has gross hematuria when he gets URI, not new issue. Thinks not eating as well over past few days- was able to eat dinner tonight. No abd pain, fevers, dysuria, difficulty voiding. No rash. No LE Edema- did have some last fall that has improved on its own. B{ running 140s-150s since arrival here. NOtes it was 170s/ 120s after d/c from hospital until started hydralazine-- then was 150s after starting this med last week. No other new meds. Has not taken any NSAIDs or ASA. Objective: Vital Signs Temp Pulse Resp BP Pulse Ox 36.4 C 75 18 151/95 H 98 05/14/18 12:41 05/14/18 15:26 05/14/18 15:26 05/14/18 14:17 05/14/18 15:26 Physical Exam - Physical Exam General Appearance: alert, no apparent distress EENT: other (mmm, no icterus) Neck: supple Respiratory: lungs clear Cardiac/Chest: regular rate, rhythm, other (no m/r) Abdomen: normal bowel sounds, non-tender, soft Skin: warm/dry, other (no rash) Extremities: other (no edema) Neuro/Psych: alert, oriented x 3 ICD10 Worksheet Patient Problems: Problems Problem Status Onset Hypertension Acute Renal failure Acute Acute renal failure Acute
--- NOTE | 2018-05-14 17:56 | PDGENHP ---
<Delmy Ulloa - Last Filed: 05/14/18 18:29> History and Physical - Chief Complaint General malaise s/p starting Hydralazine - History of Present Illness 33 y/o male w/ hx of IgA nephropathy and asthma presenting today w/ general malaise, lightheadedness, chills, nausea, migraine-like symptoms after beginning a new blood pressure medication, hydralazine, on Monday. He was admitted in March 2018 in hypertensive crisis and ARF. He was diagnosed at age 18 w/ IgA nephropathy. Lately, his blood pressure has become an issue for him. He started Nifedipine approximately 2 months ago and reports mild headaches. On Monday, he began hydralazine and soon after taking, had a headache. He felt "in a fog," and was sensitive to loud sounds and lights. He has also been quite fatigued by sleeping 14 hours a day. Today, he was lightheaded and wanted to vomit but forced himself not to. He called [facility] and recommended for him to come to the ED for a further evaluation. He is being admitted for treatment and monitoring. History Information - Allergies/Home Medication List Allergies/Adverse Reactions: No Known Allergies Allergy (Verified 05/14/18 12:46) Home Medications: Cetirizine [ZyrTEC 10 mg (*)] 10 mg PO DAILY PRN 03/22/18 [Last Taken 05/13/18] Esomeprazole Magnesium [Nexium 24Hr] 20 mg PO DAILY PRN 03/22/18 [Last Taken 12/22] Acetaminophen [Tylenol 325mg (*)] 325 mg PO Q6 PRN 05/14/18 [Last Taken 05/14/18 ] Albuterol [Proventil Inhaler HFA (*)] 1 - 2 puffs IH Q4H PRN 05/14/18 [Last Taken Unknown] Fluticasone/Salmeter 250/50Mcg [Advair 250/50 (*)] 1 puffs IH DAILY 05/14/18 [ Last Taken 05/14/18] NIFEdipine [Procardia Xl 90 mg] 90 mg PO DAILY 05/14/18 [Last Taken 05/14/18] [place]-3 Fatty Acids [Fish Oil 1000 mg (*)] 1,000 mg PO DAILY 05/14/18 [Last Taken 05/13/18] hydrALAZINE [Apresoline 25 mg (RX)] 25 mg PO TID 05/14/18 [Last Taken 05/14/18] I have personally reviewed and updated: family history, medical history, social history, surgical history - Past Medical History GERD, hypertension Additional medical history: IgA nephropathy - Surgical History Reports: appendectomy Additional surgical history: Kidney biopsy at age 18 y/o - Family History Positive for: non-pertinent - Social History Smoking Status: Light smoker (Social smoker. Has smoked less than a pack within a few months) Alcohol Use: Occasionally (Has reduced his intake within the last 2 months. 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 Moved from [place], [place] 2.5 years ago. Review of Systems Review of Systems: ROS: 10pt was reviewed & negative except for what was stated in HPI & below Neurological: Reports: anxiety (He reports over the years, has become more tense and anxious than before. He has additional work stress.) Physical Exam Physical Exam: Lab data and imaging were reviewed. Case discussed w/admitting physician, Dr. Sarah Lugo. WBC: 8.16 Na: 133 BUN/Cr: 32/3.1 EKG: Normal axis, SR, 65 bpm Troponin: 0.013 Temp Pulse Resp BP Pulse Ox 36.4 C 75 18 151/95 H 98 05/14/18 12:41 05/14/18 15:26 05/14/18 15:26 05/14/18 14:17 05/14/18 15:26 Constitutional: appears nourished, uncomfortable Eyes: PERRL, anicteric sclera, EOMI Ears, Nose, Mouth, Throat: moist mucous membranes, hearing normal, ears appear normal, no oral mucosal ulcers Cardiovascular: regular rate and rhythym, no murmur, rub, or gallop, edema (Non- pitting BLE edema) Peripheral Pulses: 2+: dorsalis-pedis (R) (Radial 2+), dorsalis-pedis (L) ( Radial 2+) Respiratory: no respiratory distress, no rales or rhonchi, clear to auscultation Gastrointestinal: normoactive bowel sounds, soft, non-tender abdomen, no palpable masses Genitourinary: no bladder fullness, no bladder tenderness, other (Reports increase in voiding frequency and volume) Skin: warm, normal color, no rashes or abrasions, no fluctuance, no induration, No mottled Musculoskeletal: full muscle strength, no muscle tenderness, normal joint ROM, no joint effusions Neurologic: AAOx3, sensation intact bilaterally, CN II-XII Intact Psychiatric: interacting appropriately, not anxious, not encephalopathic, thought process linear Lymph, Heme, Immunologic: no cervical LAD, no supraclavicular LAD Lab Data & Imaging Review 05/14/18 13:20 05/14/18 13:20 WBC 8.16 10^3/uL (3.80-9.50) 05/14/18 13:20 RBC 4.27 10^6/uL (4.40-6.38) L 05/14/18 13:20 Hgb 13.1 g/dL (13.7-17.5) L 05/14/18 13:20 Hct 37.7 % (40.0-51.0) L 05/14/18 13:20 MCV 88.3 fL (81.5-99.8) 05/14/18 13:20 MCH 30.7 pg (27.9-34.1) 05/14/18 13:20 MCHC 34.7 g/dL (32.4-36.7) 05/14/18 13:20 RDW 11.7 % (11.5-15.2) 05/14/18 13:20 Plt Count 295 10^3/uL (150-400) 05/14/18 13:20 MPV 9.6 fL (8.7-11.7) 05/14/18 13:20 Neut % (Auto) 75.3 % (39.3-74.2) H 05/14/18 13:20 Lymph % (Auto) 16.8 % (15.0-45.0) 05/14/18 13:20 [place] % (Auto) 6.1 % (4.5-13.0) 05/14/18 13:20 Eos % (Auto) 1.2 % (0.6-7.6) 05/14/18 13:20 Baso % (Auto) 0.4 % (0.3-1.7) 05/14/18 13:20 Nucleat RBC Rel Count 0.0 % (0.0-0.2) 05/14/18 13:20 Absolute Neuts (auto) 6.14 10^3/uL (1.70-6.50) 05/14/18 13:20 Absolute Lymphs (auto) 1.37 10^3/uL (1.00-3.00) 05/14/18 13:20 Absolute Monos (auto) 0.50 10^3/uL (0.30-0.80) 05/14/18 13:20 Absolute Eos (auto) 0.10 10^3/uL (0.03-0.40) 05/14/18 13:20 Absolute Basos (auto) 0.03 10^3/uL (0.02-0.10) 05/14/18 13:20 Absolute Nucleated RBC 0.00 10^3/uL (0-0.01) 05/14/18 13:20 Immature Gran % 0.2 % (0.0-1.1) 05/14/18 13:20 Immature Gran # 0.02 10^3/uL (0.00-0.10) 05/14/18 13:20 Sodium 133 mEq/L (135-145) L 05/14/18 13:20 Potassium 4.7 mEq/L (3.5-5.2) 05/14/18 13:20 Chloride 105 mEq/L (97-110) 05/14/18 13:20 Carbon Dioxide 21 mEq/l (22-31) L 05/14/18 13:20 Anion Gap 7 mEq/L (6-14) 05/14/18 13:20 BUN 32 mg/dL (7-23) H 05/14/18 13:20 Creatinine 3.1 mg/dL (0.7-1.3) H 05/14/18 13:20 Estimated GFR 24 05/14/18 13:20 Glucose 95 mg/dL (70-100) 05/14/18 13:20 Calcium 8.9 mg/dL (8.5-10.4) 05/14/18 13:20 Total Bilirubin 0.4 mg/dL (0.1-1.4) 05/14/18 16:40 Conjugated Bilirubin 0.3 mg/dL (0.0-0.5) 05/14/18 16:40 Unconjugated Bilirubin 0.1 mg/dL (0.0-1.1) 05/14/18 16:40 AST 18 IU/L (17-59) 05/14/18 16:40 ALT 21 IU/L (21-72) 05/14/18 16:40 Alkaline Phosphatase 65 IU/L (38-126) 05/14/18 16:40 Troponin I 0.013 ng/mL (0.000-0.034) 05/14/18 16:40 Total Protein 5.8 g/dL (6.3-8.2) L 05/14/18 16:40 Albumin 3.1 g/dL (3.5-5.0) L 05/14/18 16:40 Urine Color PALE YELLOW 05/14/18 13:57 Urine Appearance CLEAR 05/14/18 13:57 Urine pH 6.0 (5.0-7.5) 05/14/18 13:57 Ur Specific [place] 1.010 (1.002-1.030) 05/14/18 13:57 Urine Protein 3+ (NEGATIVE) H 05/14/18 13:57 Urine Ketones NEGATIVE (NEGATIVE) 05/14/18 13:57 Urine Blood 2+ (NEGATIVE) H 05/14/18 13:57 Urine Nitrate NEGATIVE (NEGATIVE) 05/14/18 13:57 Urine Bilirubin NEGATIVE (NEGATIVE) 05/14/18 13:57 Urine Urobilinogen NEGATIVE EU (0.2-1.0) 05/14/18 13:57 Ur Leukocyte Esterase NEGATIVE (NEGATIVE) 05/14/18 13:57 Urine RBC 25-50 /hpf (0-3) H 05/14/18 13:57 Urine WBC 1-3 /hpf (0-3) 05/14/18 13:57 Ur Epithelial Cells NONE SEEN /lpf (NONE-1+) 05/14/18 13:57 Hyaline Casts 1-5 /lpf (0-1) 05/14/18 13:57 Urine Glucose NEGATIVE (NEGATIVE) 05/14/18 13:57 Assessment & Plan Plan: 33 y/o male w/ IgA nephropathy presenting w/symptomatic blood pressure concerns. 1. General malaise feeling 2/2 suspected BP medication: EKG and first trop normal. No CP, palpitations, SOB. -Cycle trops x 2 -Cont tele monitoring -One time orthostatic VSS -Nephrology consulting: I spoke w/ Dr. Fermin who evaluated the pt. I am holding hydralazine for now; if sbp > 160 bpm, labetalol PO PRN. would like to proceed w/ biopsy tomorrow. -Anti-emetics PRN -IVF x 1 bag 2. Renal failure: Nephrology consulted. Ordered urine creatinine and protein. IVF x 1 bag. Biopsy tomorrow. 3. Hypertension: fairly stable last 2 readings 151/95, 148/99. See above. Suspected HTN 2/2 disease progression. 4. Reactive airway disease: on inhalers. 5. GERD: on pantoprazole Diet: Renal, NPO at midnight tonight VTE ppx: Up ad casey, SCDs Code: Full Dispo: Admit to obs <Sarah Lugo - Last Filed: 05/14/18 20:20> History and Physical - History of Present Illness Review of Systems Review of Systems: Physical Exam Physical Exam: Temp Pulse Resp BP Pulse Ox 36.7 C 66 19 150/92 H 98 05/14/18 19:58 05/14/18 19:58 05/14/18 19:58 05/14/18 19:58 05/14/18 15:26 Lab Data & Imaging Review 05/14/18 13:20 05/14/18 13:20 WBC 8.16 10^3/uL (3.80-9.50) 05/14/18 13:20 RBC 4.27 10^6/uL (4.40-6.38) L 05/14/18 13:20 Hgb 13.1 g/dL (13.7-17.5) L 05/14/18 13:20 Hct 37.7 % (40.0-51.0) L 05/14/18 13:20 MCV 88.3 fL (81.5-99.8) 05/14/18 13:20 MCH 30.7 pg (27.9-34.1) 05/14/18 13:20 MCHC 34.7 g/dL (32.4-36.7) 05/14/18 13:20 RDW 11.7 % (11.5-15.2) 05/14/18 13:20 Plt Count 295 10^3/uL (150-400) 05/14/18 13:20 MPV 9.6 fL (8.7-11.7) 05/14/18 13:20 Neut % (Auto) 75.3 % (39.3-74.2) H 05/14/18 13:20 Lymph % (Auto) 16.8 % (15.0-45.0) 05/14/18 13:20 [place] % (Auto) 6.1 % (4.5-13.0) 05/14/18 13:20 Eos % (Auto) 1.2 % (0.6-7.6) 05/14/18 13:20 Baso % (Auto) 0.4 % (0.3-1.7) 05/14/18 13:20 Nucleat RBC Rel Count 0.0 % (0.0-0.2) 05/14/18 13:20 Absolute Neuts (auto) 6.14 10^3/uL (1.70-6.50) 05/14/18 13:20 Absolute Lymphs (auto) 1.37 10^3/uL (1.00-3.00) 05/14/18 13:20 Absolute Monos (auto) 0.50 10^3/uL (0.30-0.80) 05/14/18 13:20 Absolute Eos (auto) 0.10 10^3/uL (0.03-0.40) 05/14/18 13:20 Absolute Basos (auto) 0.03 10^3/uL (0.02-0.10) 05/14/18 13:20 Absolute Nucleated RBC 0.00 10^3/uL (0-0.01) 05/14/18 13:20 Immature Gran % 0.2 % (0.0-1.1) 05/14/18 13:20 Immature Gran # 0.02 10^3/uL (0.00-0.10) 05/14/18 13:20 Sodium 133 mEq/L (135-145) L 05/14/18 13:20 Potassium 4.7 mEq/L (3.5-5.2) 05/14/18 13:20 Chloride 105 mEq/L (97-110) 03/11/19 13:20 Carbon Dioxide 21 mEq/l (22-31) L 05/14/18 13:20 Anion Gap 7 mEq/L (6-14) 05/14/18 13:20 BUN 32 mg/dL (7-23) H 05/14/18 13:20 Creatinine 3.1 mg/dL (0.7-1.3) H 05/14/18 13:20 Estimated GFR 24 05/14/18 13:20 Glucose 95 mg/dL (70-100) 05/14/18 13:20 Calcium 8.9 mg/dL (8.5-10.4) 05/14/18 13:20 Total Bilirubin 0.4 mg/dL (0.1-1.4) 05/14/18 16:40 Conjugated Bilirubin 0.3 mg/dL (0.0-0.5) 05/14/18 16:40 Unconjugated Bilirubin 0.1 mg/dL (0.0-1.1) 05/14/18 16:40 AST 18 IU/L (17-59) 05/14/18 16:40 ALT 21 IU/L (21-72) 05/14/18 16:40 Alkaline Phosphatase 65 IU/L (38-126) 05/14/18 16:40 Troponin I 0.013 ng/mL (0.000-0.034) 05/14/18 16:40 Total Protein 5.8 g/dL (6.3-8.2) L 05/14/18 16:40 Albumin 3.1 g/dL (3.5-5.0) L 05/14/18 16:40 Urine Color PALE YELLOW 05/14/18 13:57 Urine Appearance CLEAR 05/14/18 13:57 Urine pH 6.0 (5.0-7.5) 05/14/18 13:57 Ur Specific [place] 1.010 (1.002-1.030) 05/14/18 13:57 Urine Protein 3+ (NEGATIVE) H 05/14/18 13:57 Urine Ketones NEGATIVE (NEGATIVE) 05/14/18 13:57 Urine Blood 2+ (NEGATIVE) H 05/14/18 13:57 Urine Nitrate NEGATIVE (NEGATIVE) 05/14/18 13:57 Urine Bilirubin NEGATIVE (NEGATIVE) 05/14/18 13:57 Urine Urobilinogen NEGATIVE EU (0.2-1.0) 05/14/18 13:57 Ur Leukocyte Esterase NEGATIVE (NEGATIVE) 05/14/18 13:57 Urine RBC 25-50 /hpf (0-3) H 05/14/18 13:57 Urine WBC 1-3 /hpf (0-3) 05/14/18 13:57 Ur Epithelial Cells NONE SEEN /lpf (NONE-1+) 05/14/18 13:57 Hyaline Casts 1-5 /lpf (0-1) 05/14/18 13:57 Urine Glucose NEGATIVE (NEGATIVE) 05/14/18 13:57 Assessment & Plan Assessment: Hypertension (Acute) Renal failure (Acute) Patient seen and evaluated independently and care plan reviewed with ASTON Ulloa. Agree with her assessment and plan as outlined above. Please see separate documentation for further details.
--- NOTE | 2018-05-14 18:02 | HOSPPROG ---
Hospitalist Progress Note Assessment/Plan: 33 yo M with hx of IgA nephropathy, RAD and HTN presenting with BENSON, nausea, near syncope in the setting of recent initiation of hydralazine # near syncope: patient describing issue with what sounds like vagal episodes with nausea, diaphoresis and near syncope since initiation of hydralazine on Monday. He notes it was so severe he essentially could not get off the ground. BP has been in the 150s systolic since arrival but per patient his normal baseline is 170-200 systolic and he feels that it is the decrease in his BP that is making him feel so poorly. Will hold BP meds for now, ECG, and troponin ordered as well as monitoring on tele. If sxs do not improve with increased bp consider echo in am. # HTN: patient had been on nifedipine with recent initiation of hydralazine leading to sxs as above, patient is followed by nephrology for this. Will hold hydralazine and shoot for goal SBP of closer to 170 and monitor sxs. If sxs are related to relative hypotension he may require very slow decrease in bp. # pat on ckd: 2/2 IgA nephropathy, followed by [facility], renal function has been relatively stable but slight increase in creatinine today likely due to poor po intake with n/v in setting of above # malaise: patient notes this has been a more longstanding issue but much worse over the weekend, as above, has had recent TSH wnl # RAD: without e/o acute exacerbation # observation status Patient new to my care. Old records reviewed and summarized as above. Care plan reviewed with ER doctor and ASTON Ulloa, please see separate documentation by ASTON Ulloa for further details. Objective: Vital Signs Temp Pulse Resp BP Pulse Ox 36.4 C 75 18 151/95 H 98 05/14/18 12:41 05/14/18 15:26 05/14/18 15:26 05/14/18 14:17 05/14/18 15:26 ICD10 Worksheet Patient Problems: Problems Problem Status Onset Hypertension Acute Renal failure Acute Acute renal failure Acute
[2018-05-14] MEDS ORDERED: LABETALOL HCL 5 MG/ML 20 ML MDV IVP PRN (18:33)
[2018-05-15 05:21] LABS: PLATELET COUNT 256 10^3/uL (150-400)
[2018-05-15 05:33] LABS: INR 0.96 (0.83-1.16); PROTIME(PATIENT) 12.4 SEC (12.0-15.0)
--- NOTE | 2018-05-15 08:26 | HOSPPROG ---
Hospitalist Progress Note Assessment/Plan: 33 yo M with hx of IgA nephropathy with resultant CKD, RAD and HTN presenting with BENSON, nausea, near syncope in the setting of recent initiation of hydralazine. #Hypertension: SBP goal 150s - Renal consulted, appreciate assistance - Started on carvedilol, continue nifedipine - Will need ACEi once Cr stabilizes #SONNY on CKD: Due to uncontrolled HTN. - BP mgmt as above, monitor Cr daily #IgA nephropathy with proteinuria - No indication for biopsy presently - Needs statin at some point #Presyncope: D/t low BP? None here. #RAD: No exacerbation. VTE ppx: SCDs Code: full Dispo: Inpatient Subjective: No acute complaints. No dizziness or headache. Objective: Vital Signs Temp Pulse Resp BP Pulse Ox 36.6 C 64 9 L 138/105 H 94 05/15/18 04:00 05/15/18 04:00 05/15/18 04:00 05/15/18 04:00 05/15/18 04:00 Laboratory Results 05/15/18 04:35 05/15/18 04:35 05/14/18 05/15/18 05/16/18 05:59 05:59 05:59 Intake Total 958 Balance 958 PT 12.4 SEC (12.0-15.0) 05/15/18 04:35 INR 0.96 (0.83-1.16) 05/15/18 04:35 - Physical Exam Constitutional: no apparent distress, appears nourished, not in pain Eyes: PERRL, anicteric sclera, EOMI Ears, Nose, Mouth, Throat: moist mucous membranes, hearing normal, ears appear normal, no oral mucosal ulcers Cardiovascular: regular rate and rhythym, no murmur, rub, or gallop, No edema Respiratory: no respiratory distress, no rales or rhonchi, clear to auscultation Gastrointestinal: normoactive bowel sounds, soft, non-tender abdomen, no palpable masses Genitourinary: no bladder fullness, no bladder tenderness, no renal bruits Skin: no rashes or abrasions, no fluctuance, no induration Musculoskeletal: full muscle strength, no muscle tenderness, normal joint ROM Neurologic: AAOx3, sensation intact bilaterally Psychiatric: interacting appropriately, not anxious, not encephalopathic, thought process linear ICD10 Worksheet Patient Problems: Problems Problem Status Onset Hypertension Acute Renal failure Acute Acute renal failure Acute
[2018-05-15] MEDS ORDERED: NIFEdipine ER 60 MG TAB PO SCH (09:00)
[2018-05-15] MEDS ORDERED: PANTOPRAZOLE SODIUM 40 MG TAB PO PRN (09:00)
[2018-05-15] MEDS ORDERED: NIFEdipine ER 30 MG TAB PO SCH (09:00)
--- NOTE | 2018-05-15 09:31 | SOAPPROG ---
[facility] Progress Note Assessment/Plan: Assessment: This is my first visit meeting with Luis. I reviewed his past history and his current issues. He has had longstanding CKD due to HTN and IgAN, with renal Bx at age 18. His last recorded Cr was 1.2 four years ago, prior to his recent elevations of BP and Cr (now in the upper 2's). At this point, their would not be an indication for IS therapy. I will thus cancel his renal biopsy. Our main goals will be BP control. At this time, I will transition him to triple therapy with minoxidil, carvedilol , and a loop diuretic. His goal SBP for now will be in the 150's. With time, we will lower his target and add ACEI if tolerated (as an outpatient). He should ultimately also be on statin therapy given his CKD and proteinuria. I reviewed this plan with Luis, and he is in agreement. On DC, he will need to make a BP log with bid readings and submit to us weekly. I will request a dietary consult for sodium and protein intake. Plan: 05/15/18 09:26 Subjective: Feeling better. Objective: Vital Signs Temp Pulse Resp BP Pulse Ox 36.8 C 74 20 168/108 H 95 05/15/18 08:00 05/15/18 08:00 05/15/18 08:00 05/15/18 08:00 05/15/18 08:00 Laboratory Results 05/15/18 04:35 05/15/18 04:35 05/14/18 05/15/18 05/16/18 05:59 05:59 05:59 Intake Total 958 Balance 958 PT 12.4 SEC (12.0-15.0) 05/15/18 04:35 INR 0.96 (0.83-1.16) 05/15/18 04:35 Physical Exam - Physical Exam General Appearance: no apparent distress Respiratory: lungs clear Cardiac/Chest: regular rate, rhythm Extremities: non-tender Neuro/Psych: normal mood/affect, oriented x 3 ICD10 Worksheet Patient Problems: Problems Problem Status Onset Hypertension Acute Renal failure Acute Acute renal failure Acute
[2018-05-15] MEDS: FLUTICASONE/SALMETER 250/50MCG DISKUS IH SCH (09:36)
--- NOTE | 2018-05-15 09:38 | SOAPPROG ---
[facility] Progress Note Assessment/Plan: Assessment: addendum SBP now in the 150's. Will try bid nifedipine along with carvedilol, and hold minoxidil for now. Objective: Vital Signs Temp Pulse Resp BP Pulse Ox 36.8 C 74 20 151/113 H 95 05/15/18 08:00 05/15/18 08:00 05/15/18 08:00 05/15/18 09:28 05/15/18 08:00 Laboratory Results 05/15/18 04:35 05/15/18 04:35 05/14/18 05/15/18 05/16/18 05:59 05:59 05:59 Intake Total 958 Balance 958 PT 12.4 SEC (12.0-15.0) 05/15/18 04:35 INR 0.96 (0.83-1.16) 05/15/18 04:35 ICD10 Worksheet Patient Problems: Problems Problem Status Onset Hypertension Acute Renal failure Acute Acute renal failure Acute
[2018-05-15] MEDS: NIFEdipine ER 60 MG TAB PO SCH ×2 (10:24→21:26)
[2018-05-15] MEDS: CARVEDILOL 3.125 MG TAB PO SCH ×2 (10:24→18:10)
[2018-05-15] MEDS ORDERED: PNEUMOCOCCAL 0.5ML VACCINE VIAL (PNEUMOVAX 23) IM ONE (12:54)
--- NOTE | 2018-05-15 13:21 | ASMTCMCOM ---
CM Note CM Note Notes: Patient plan of care reviewed in am rounds. 33 year old male with HTN and kidney disease admitted via ED with nausea and malaise. Followed by nephrology. Medications adjusted. CM to follow for needs but likely independent at discharge. Plan: TBD Date Signed: 05/15/2018 01:21 PM Electronically Signed By:Bernice Swanson RN
[2018-05-15] MEDS ORDERED: LABETALOL HCL 5 MG/ML 20 ML MDV IVP PRN (15:04)
--- NOTE | 2018-05-15 18:29 | PDMN ---
Medical Necessity Medical necessity: Change to inpt as of 05/15/18 @ 15:00, pt meets inpt criteria per MD order and MCG [id number], Renal Failure, Acute, 3 days. 33 y/o w/hx of IgA nephropathy w/resultant CKD, RAD, and HTN presented w/BENSON, nausea, and near syncope in setting of recent initiation of hydralazine, admitted w/HTN, SONNY on CKD, likely due to uncontrolled HTN, IgA nephropathy w/proteinuria. Renal consult, upgraded to inpt for med nec management of HTN (SBP today as high as 172 and diastolic 113), monitor for effectiveness/tolerance of antihypertensives , monitor kidney function, est LOS>2MN for ongoing management of above.
[2018-05-15] MEDS ORDERED: MINOXIDIL 2.5 MG TAB PO SCH (21:00)
[2018-05-16] MEDS: NIFEdipine ER 60 MG TAB PO SCH ×2 (08:36→21:01)
[2018-05-16] MEDS: CARVEDILOL 3.125 MG TAB PO SCH ×2 (08:36→18:40)
[2018-05-16] MEDS: FLUTICASONE/SALMETER 250/50MCG DISKUS IH SCH ×2 (09:20→11:42)
[2018-05-16] MEDS: ACETAMINOPHEN 325 MG TAB PO PRN (21:01)
[2018-05-17] MEDS: FLUTICASONE/SALMETER 250/50MCG DISKUS IH SCH (08:59)
[2018-05-17] MEDS: CARVEDILOL 3.125 MG TAB PO SCH (09:20)
[2018-05-17] MEDS: NIFEdipine ER 60 MG TAB PO SCH (09:20)
--- NOTE | 2018-05-17 11:00 | GDS ---
[f rep st] DISCHARGE SUMMARY ALL DIAGNOSES: 1. IgA nephropathy. 2. Uncontrolled hypertension. 3. Proteinuria. 4. Acute on chronic kidney injury. 5. Presyncope/dizziness/lightheadedness. 6. Reactive airway disease without exacerbation. HOSPITAL COURSE: This is a 33-year-old male with a history of IgA nephropathy. He had a recent admi ssion for hypertensive crisis. He presents with presyncopal symptoms. He had just recently started hydralazine as an outpatient. He was instituted on stable doses of antihypertensives. Here, he has been getting Coreg 3.125 mg p.o. b.i.d., as well as nifedipine 60 mg p.o. b.i.d. his blood pressures are reasonably well controlled, currently 140/90. His goal is approximately 140 to 150/90. He has been given instructions to take his blood pressure twice daily, log all these and provide to Dr. Lloyd knight. He should follow up with her in 1 to 2 weeks. Plan will be likely to start a diuretic, as well as an INGRID inhibitor as an outpatient. He is followed closely by Nephrology, may need a renal tr ansplant in the future. DISPOSITION: He is discharged home in stable condition. BILLING: I spent more than 30 minutes on the day of discharge coordinating care. /[id number]/MODL
--- NOTE | 2018-05-17 11:29 | ASMTLACE ---
LACE Length of stay for Answers: 1 day current admission Comorbidities - select Answers: Moderate or severe liver all that apply or renal disease Other Notes: HTN; GERD; IgA nephropathy # of Emergency department Answers: 1-2 visits in the last 6 months Score: 7 Date Signed: 05/17/2018 11:28 AM Electronically Signed By:Bernice Swanson RN
--- NOTE | 2018-05-17 11:30 | ASMTDCNOTE ---
Case Management Discharge Discharge Order Complete? Answers: Yes Patient to Obtain Answers: via Family Medications Transportation Arranged Answers: Family/Friends Family Notified Answers: Yes Discharge Comments Notes: Patient medically cleared for discharge with outpatient follow up. Date Signed: 05/17/2018 11:30 AM Electronically Signed By:Bernice Swanson RN
[2018-05-17 11:37] VITALS: BP 152/97
--- NOTE | 2018-05-18 10:44 | CPEKG ---
Test Reason : OPEN Blood Pressure : / mmHG Vent. Rate : 065 BPM Atrial Rate : 065 BPM P-R Int : 167 ms QRS Dur : 090 ms QT Int : 439 ms P-R-T Axes : 049 076 018 degrees QTc Int : 457 ms Sinus rhythm Confirmed by Bharat San ([id number]) on 05/18/2018 10:44:33 AM Referred By: Delmy Ulloa Confirmed By:Bharat San
== END 2018-05-17 15:55 | disposition home or self-care (01) | DRG 700 ==
LOC: F1N 15:46 → OBSVTOIN 05-15 15:00
PROVIDERS: ADMIT Internal Medicine; ATTEND Nurse Practitioner
DX: N02.8 Recurrent and persistent hematuria with other morphologic changes (principal); N17.9 Acute kidney failure, unspecified; N18.9 Chronic kidney disease, unspecified; J45.909 Unspecified asthma, uncomplicated; K21.9 Gastro-esophageal reflux disease without esophagitis; Z72.0 Tobacco use; Z23 Encounter for immunization
CPT/HCPCS: G0008; G0009; G0378